=== PATIENT | female | born 1960 | race Caucasian/White ===

== ENCOUNTER 2022-05-24 08:29 | Day surgery (SDC) | payer BC ==
[2022-05-21 09:42] LABS: Absolute Lymphocytes (CBC) 2.5 K/uL (0.7-4.9); Hematocrit 45.2 % (36.0-45.0); Lymphocytes % 29.9 % (15.3-44.8); MCV 87.5 fL (80-100); MPV 8.7 fL (7.6-11.3); RBC Red Blood Cell Count 5.16 M/uL (3.86-4.86)
[2022-05-21 09:51] LABS: Protime INR 1.04
--- NOTE | 2022-05-21 10:18 | RAD REPORT ---
EXAM DESCRIPTION: Suzi Single View05/21/2022 9:57 am CLINICAL HISTORY: Preop for cardiac catheterization COMPARISON: none FINDINGS: The lungs appear clear of acute infiltrate. The heart is normal size IMPRESSION: No acute abnormalities displayed
[2022-05-21 10:20] LABS: Potassium 4.1 mmol/L (3.5-5.1)
[2022-05-24] MEDS ORDERED: NA CHLORIDE 0.9% 500 ML ONE (08:33)
[2022-05-24 09:00] VITALS: BP 140/72; O2SAT 96
== END 2022-05-24 10:40 | disposition home or self-care (01) ==
LOC: CCL 08:29
DX: R94.39 Abnormal result of other cardiovascular function study (principal); Z53.9 Procedure and treatment not carried out, unspecified reason
CPT/HCPCS: 36415; 71045; 80048; 82947; 85025; 85610; 85730; J7040

== ENCOUNTER 2023-01-06 10:04 | Day surgery (SDC) | payer BC ==
[2023-01-05 10:04] LABS: Absolute Lymphocytes (CBC) 2.6 K/uL (0.7-4.9); Hematocrit 42.3 % (36.0-45.0); MPV 8.4 fL (7.6-11.3); RBC Red Blood Cell Count 4.76 M/uL (3.86-4.86)
[2023-01-05 10:09] LABS: Protime INR 1.1
[2023-01-05 10:23] LABS: Potassium 4.2 mEq/L (3.5-5.1)
--- NOTE | 2023-01-05 10:23 | RAD REPORT ---
EXAM DESCRIPTION: Suzi Salas And Josiah (2 Views)01/05/2023 9:59 am CLINICAL HISTORY: Preop for cardiac catheterization. Hypertension COMPARISON: 2021 FINDINGS: A few areas of scarring are present within the lungs. The lungs appear clear of acute infiltrate. The heart is mildly enlarged IMPRESSION: No acute abnormalities displayed
--- NOTE | 2023-01-05 17:30 | EKG ---
Test Date: 2023-01-05 Test Time: 09:36:52 Tobacco Prevention Health Educator: GLADYS MEASUREMENT RESULTS: Intervals: Rate: 74 MO: 152 QRSD: 90 QT: 386 QTc: 428 [place]: P: 72 MO: 152 QRS: 57 T: 74 INTERPRETIVE STATEMENTS: Normal sinus rhythm Normal ECG Compared to ECG 06/09/2001 14:10:00 Ventricular premature complex(es) no longer present Atrial abnormality no longer present T-wave abnormality no longer present Electronically Signed On 01-05-23 17:30:23 CDT by Werner Henry
[~2023-01-06 10:04] MED LIST: ASPIRIN 325 MG TAB ONE; ATROPINE SULF 1 MG/10 ML SYR IV ONE; CLOPIDOGREL 75 MG TABLET ONE; FENTANYL CITR 100 MCG/2 ML ONE; HEPA 1000U/500MLS 2,000 UNIT/1,000 ML BAG IV ONE; HEPARIN 10,000 UNIT/10 ML VIAL IV ONE; MIDAZOLAM HCL 2 MG/2 ML INJ ONE; TICAGRELOR 90 MG TABLET PO ONE
[2023-01-06] MEDS ORDERED: NA CHLORIDE 0.9% 500 ML ONE (10:10)
[2023-01-06 10:41] VITALS: TEMP 97.7
[2023-01-06] MEDS ORDERED: HEPARIN 10,000 UNIT/10 ML VIAL IV ONE (12:16)
--- NOTE | 2023-01-06 13:29 | OP ---
Date of Procedure: 01/06/2023 Surgeon: BINDU GUIDO Procedures Performed: 1.Selective coronary angiogram. 2.Left heart catheterization. Indication: Abnormal stress test. Access: Right radial artery 6-Hungarian closed with TR band. Complications: None. Bleeding: Less than 20 mL. Anesthesia: Total sedation time was 15 minutes, used fentanyl and Versed. Description Of Procedure: After risks, benefits, alternatives were explained, the patient agreed to procedure and signed informed consent. The patient was brought into the cardiac catheterization [facility] ([place] prepped and draped in the usual sterile fashion. Then, I accessed right radial artery using pediatric micropuncture kit, placed 6-Hungarian Slender sheath, took 5-Hungarian [place] 4.0 catheter into th e aortic root, engaged the left main and then right coronary artery, took standard views, and then th e catheter was pushed over the wire into the LV, measured LVEDP and pullback did not record any gradi ent. Then, I removed the catheter and the sheath, placed TR band with good hemostasis. Findings: 1.Left main; large and normal. 2.LAD; proximal 30%, very large vessel, and the rest of the vessel is normal. Normal diagonal branc hes. 3.Left circumflex; large and codominant with proximal 30% stenosis. 4.RCA; large and codominant and normal. 5.Elevated LVEDP between 15 and 20 mmHg. Conclusion: 1.Mild nonobstructive coronary artery disease. 2.Elevated LVEDP. Recommendation: Medical management. /YOVANI Voice ID: [id number] Report ID: [id number]
[2023-01-06 14:36] VITALS: O2SAT 95
[2023-01-06 15:40] VITALS: BP 155/67
== END 2023-01-06 15:30 | disposition home or self-care (01) ==
LOC: CCL 10:04
PROVIDERS: ATTEND Internal Medicine
DX: I25.10 Atherosclerotic heart disease of native coronary artery without angina pectoris (principal); I35.1 Nonrheumatic aortic (valve) insufficiency; I65.22 Occlusion and stenosis of left carotid artery; I10 Essential (primary) hypertension; E78.2 Mixed hyperlipidemia; Z01.810 Encounter for preprocedural cardiovascular examination; Z79.82 Long term (current) use of aspirin; Z79.899 Other long term (current) drug therapy; Z82.49 Family history of ischemic heart disease and other diseases of the circulatory system
CPT/HCPCS: 93005; 85025; 80048; 36415; 85610; 82947; 85730; 71046; 93458; 76937; C1893; Q9966; J7040; J0461; J2250; J3010